=== PATIENT | female | born 1960 | race Caucasian/White ===

== ENCOUNTER 2023-12-19 09:08 | Outpatient (OUT) | payer BC, SELFPAY ==
[2023-12-19 09:50] LABS: Basophils Percent Auto 0.6 % (0.2-2.0); Eosinophils Absolute Auto 0.1 10^3/uL (0.0-0.7); Eosinophils Percent Auto 2.6 % (0.9-7.0); Hemoglobin 14.3 g/dL (12.0-16.0); Immature Granulocytes Abs Auto 0.02 10^3/uL (0.00-0.03); Immature Granulocytes Pct Auto 0.4 % (0.0-0.5); Lymphocytes Absolute Auto 1.5 10^3/uL (1.2-3.8); Lymphocytes Percent Auto 28.1 % (20.5-60.0); Mean Corpuscular HGB Conc 32.5 g/dL (29.9-35.2); Mean Corpuscular Hemoglobin 30.6 pg (26.7-34.0); Mean Corpuscular Volume 94.2 fL (81.0-99.0); Mean Platelet Volume 10.6 fL (9.5-13.5); Monocytes Absolute Auto 0.5 10^3/uL (0.3-0.8); Monocytes Percent Auto 8.3 % (1.7-12.0); Neutrophils Absolute Auto 3.3 10^3/uL (1.4-6.5); Platelet Count 172 10^3/uL (150-450); Red Blood Count 4.67 10^6/uL (4.20-5.40); Red Cell Distribution Width 13.1 % (11.0-15.0); White Blood Count 5.4 10^3/uL (4.0-11.0)
[2023-12-19 09:55] LABS: Alanine Aminotransferase 27 U/L (14-59); Albumin Globulin Ratio 1.1; Albumin Level 3.8 g/dL (3.4-5.0); Alkaline Phosphatase 77 U/L (46-116); Anion Gap 11.3; Aspartate Amino Transferase 23 U/L (15-37); BUN Creatinine Ratio 21.2; Bilirubin Total 0.7 mg/dL (0.2-1.0); Calcium 9.3 mg/dL (8.5-10.1); Carbon Dioxide 28.7 mmol/L (21.0-32.0); Chloride 105 mmol/L (98-107); Chol HDL Ratio 2.2; Cholesterol 191 mg/dL (<=200); Estimated GFR (African America >60 (>=60); Estimated GFR (Non-African Ame >60 (>=60); Globulin 3.6 g/dL; Glucose 100 mg/dL (74-106); HDL Cholesterol 88 mg/dL (40-60); Sodium 141 mmol/L (136-145); Thyroid Stimulating Hormone 0.819 uIU/mL (0.358-3.740); Total Protein 7.4 g/dL (6.4-8.2); Triglycerides 60 mg/dL (<=150)
[2023-12-19 10:13] LABS: Estimated Average Glucose 108 mg/dL; Glycohemoglobin A1C 5.4 % (4.5-6.2)
[2023-12-19 10:28] LABS: Free T4 0.98 ng/dL (0.76-1.46)
== END 2023-12-19 09:09 | disposition home or self-care (01) ==
LOC: LAB 09:13
PROVIDERS: PCP Family Medicine; Visit Provider Family Medicine
DX: Z00.00 Encounter for general adult medical examination without abnormal findings (principal)
CPT/HCPCS: 36415; 80053; 80061; 83036; 84439; 84443; 85025

== ENCOUNTER 2024-12-19 09:05 | Outpatient (OUT) | payer BC, SELFPAY ==
--- OUTSIDE RECORDS SUMMARY | 2023-12-19 04:30 | XMS_ITS ---
Author Organization The [facility] in [place] Address [address] [place] [address] Care Team Providers Care Rn Community Name Role Phone Andrey Figueroa Primary Care Provider Allergies Allergen (clinical drug ingredient) Drug/Non Drug Allergy documented on EMR Reaction Allergy Type Onset Date Status ciprofloxacin Ciprofloxacin rash Drug Allergy Active Results Component Value Reference Range Notes CBC AUTO DIFF Reviewed date:12/19/2023 03:10:26 PM Interpretation: Performing Lab: Notes/Report: [facility] , White Blood Count 5.4 4.0-11.0 10 3/uL Red Blood Count 4.67 4.20-5.40 10 6/uL Hemoglobin 14.3 12.0-16.0 g/dL Hematocrit 44.0 36.0-48.0 % Mean Corpuscular Volume 94.2 81.0-99.0 fL Mean Corpuscular Hemoglobin 30.6 26.7-34.0 pg Mean Corpuscular HGB Conc 32.5 29.9-35.2 g/dL Red Cell Distribution Width 13.1 11.0-15.0 % Platelet Count 172 150-450 10 3/uL Mean Platelet Volume 10.6 9.5-13.5 fL Neutrophils Percent Auto 60.0 43.0-75.0 % Lymphocytes Percent Auto 28.1 20.5-60.0 % Monocytes Percent Auto 8.3 1.7-12.0 % Eosinophils Percent Auto 2.6 0.9-7.0 % Basophils Percent Auto 0.6 0.2-2.0 % Immature Granulocytes Pct Auto 0.4 0.0-0.5 % Neutrophils Absolute Auto 3.3 1.4-6.5 10 3/uL Lymphocytes Absolute Auto 1.5 1.2-3.8 10 3/uL Monocytes Absolute Auto 0.5 0.3-0.8 10 3/uL Eosinophils Absolute Auto 0.1 0.0-0.7 10 3/uL Basophils Absolute Auto 0.0 0.0-0.1 10 3/uL Immature Granulocytes Abs Auto 0.02 0.00-0.03 10 3/uL Performing Lab: see note ML - [facility] GLYCOHEMOGLOBIN A1C Reviewed date:12/19/2023 03:10:26 PM Interpretation: Performing Lab: Notes/Report: [facility] , Glycohemoglobin A1C 5.4 4.5-6.2 % ADA RECOMMENDED LIMIT 4.0 - 6.0 ADA THERAPEUTIC TARGET < 7.0 ACTION SUGGESTED > 7.0 Estimated Average Glucose 108 Performing Lab: see note ML - [facility] LIPID PROFILE Reviewed date:12/19/2023 03:10:26 PM Interpretation: Performing Lab: Notes/Report: [facility] , Triglycerides 60 <=150 mg/dL Cholesterol 191 <=200 mg/dL HDL Cholesterol 88 40-60 mg/dL > or =60 mg/dl - LOW CARDIOVASCULAR RISK <40 mg/dl - HIGH CARDIOVASCULAR RISK LDL Cholesterol Calculated 91.0 <100 mg/dl OPTIMAL 100-129 mg/dl NEAR OR ABOVE OPTIMAL 130-159 mg/dl BORDERLINE HIGH 160-189 mg/dl HIGH >190 mg/dl VERY HIGH VLDL CHOLESTEROL 12.0 Chol HDL Ratio 2.2 3.3 - 4.4 LOW RISK 4.4 - 7.1 AVERAGE RISK 7.1 - 11.0 MODERATE RISK >11.0 HIGH RISK Performing Lab: see note - [facility] LB PROF 14(COMP METB) Reviewed date:12/19/2023 03:10:26 PM Interpretation: Performing Lab: Notes/Report: [facility] , Sodium 141 136-145 mmol/L Potassium 4.0 3.5-5.1 mmol/L Chloride 105 98-107 mmol/L Carbon Dioxide 28.7 21.0-32.0 mmol/L Anion Gap 11.3 Glucose 100 74-106 mg/dL Blood Urea Nitrogen 17.0 7.0-18.0 mg/dL Creatinine 0.80 0.55-1.02 mg/dL Estimated GFR ( Amalia >60 >=60 Estimated GFR (Non- Afshan >60 >=60 BUN Creatinine Ratio 21.2 Calcium 9.3 8.5-10.1 mg/dL Bilirubin Total 0.7 0.2-1.0 mg/dL Aspartate Amino Transferase 23 15-37 U/L Alanine Aminotransferase 27 14-59 U/L Alkaline Phosphatase 77 46-116 U/L Total Protein 7.4 6.4-8.2 g/dL Albumin Level 3.8 3.4-5.0 g/dL Globulin 3.6 Albumin Globulin Ratio 1.1 Performing Lab: see note ML - [facility] REASON FOR VISIT Annual Wellness- right eye redness since , capps a lot, HR when sleeps 42-45 Medications Medication SIG (Take, Route, Fr equency, Duration) Notes Start Date End Date Status Multi Vitamin - 1 tablet Orally Once a day 024 Active Social History Tobacco Use: Social History Observation Description Date Details (start date - stop date) Never Smoker NA - NA Tobacco Control (Standard) Question Answer Notes Tobacco use: Nonsmoker AUDIT-C (Standard) Question Answer Notes Did you have a drink contain ing alcohol in the past year? Yes How often did you have six o r more drinks on one occasion in the past year? Never (0 point) How many drinks did you have on a typical day when you were drinking in the past year? 1 or 2 drinks (0 point) How often did you have a dri nk containing alcohol in the past year? 2 to 4 times a month (2 points) Points 2 Interpretation Negative Problems Problem Type SNOMED Code ICD Code Onset Dates Problem Status W/U Status Risk Notes Problem Carpal tunnel syndrome (00868314) Carpal tunnel syndrome (G56.00) Active confirmed Problem Irregular intermenstrual bleeding (82620228) Irregular intermenstrual bleeding (N92.1) Active confirmed Problem Factor V Leiden mutation (168710246) Factor V Leiden mutation (D68.51) Active confirmed Problem Sleep apnea (G47.30) Active confirmed Vital Signs Blood pressure systolic 122 mm Hg 12/19/19 24 Blood pressure diastolic 84 mm Hg 024 Height 61 in 12/19/2023 Weight 202.4 lbs 12/19/2023 BMI 38.24 kg/m2 12/19/2023 Encounters Encounter Location Date Provider Diagnosis [facility] [address] [place] [address] 12/19/2023 Andrey Figueroa Well adult Z00.0 0 Assessments Encounter Date Diagnosis (ICD Code) Assessment Notes Treatment Notes Treatment Clinical Notes Section Notes 12/19/2023 Well adult (ICD-10 - Z00.00) check ing labs colonoscopy next year Plan Of Treatment Treatment Notes Assessment Notes Well adult check ing labs colonoscopy next year Pending Test Test Name Order Date THYROID PROFILE WITH TSH 12/19/2023 Progress Notes * Karen WHITFIELDDOB:1960 (63 yo F)Acc No.[id number]:12/19/2023 Progress Note Patient: Karen FINLEY Provider: Janet Figueroa ([facility])MD :1960 A ge:63 Y S ex:Female Date:12/19/2023 Address:[address] [place] [address], [place], [id number] Check In:08:24 AM ESTCheck O ut:09:00 AM EST Subjective: * Chief Complaints: * 1 . Annual Wellness- right eye redness since , capps a lot. 2. HR when sleeps 42-45. * HPI: D epression Screening: PHQ-2 (2015 Edition) L ittle interest or pleasure in doing things??Not at all F eeling down, depressed, or hopeless? N ot at all T otal Score 0 G eneral: Some bradycardia - no symotsm -. * ROS: E ENT: hearing changes d enies. v isual changes d enies.?non-healing mouth sores d enies. s wollen glands or neck lumps d enies. h oarseness d enies. s ore throat d enies. d ifficulty swallowing d enies. n ose bleeds d enies. n channing congestion d enies. e ar ache d enies. e ar discharge?denies. r inging in ears d enies. l ight sensitivity d enies. e ye pain d enies. b lurring d enies. e ye irritation d enies. d ouble vision d enies.?vision loss d enies. G eneral/Constitutional: Sweats: D enies. F atigue d enies. S leep problems d enies. A norexia d enies. M alaise d enies. W eight loss d enies.?Fatigue or Weakness d enies. F ever or Chills d enies. C ardiovascular: Shortness of Breath w/lying flat d enies. L ightheadedness/dizziness d enies. C hest tightness/ heavy pressure d enies. S welling of legs, ankles, or feet d enies. W aking up with shortness of breath d enies. C hest pain denies. P alpitations d enies. W eight gain d enies. R espiratory: Chronic or frequent cough d enies. C oughing up blood?denies. D ifficulty breathing d enies. P roductive cough d enies. S noring?denies. S hortness of breath that awakens from sleep (PND) d enies. C hest pain d enies. S putum production d enies. W heezing d enies. M usculoskeletal: Joint pain d enies. J oint Fluid d enies. B ack pain d enies. K nee pain d enies. N leandro pain d enies. J oint Stiffness d enies. M uscle cramps d enies. W eakness of muscles d enies. A rthritis d enies. M uscle aches d enies. P ain in shoulder(s) d enies. S wollen joints d enies. * Active Problem List G56.00 Carpal tunnel syndro me Modified On:12/19/2023 Status:confirmed G47.30 Sleep apnea Modified On:12/19/2023 Status:confirmed D68.51 Factor V Leiden muta tion Modified On:12/19/2023 Status:confirmed N92.1 Irregular intermenst rual bleeding Modified On:08/06/2024W/U Status:confirmed * Medical History: C arpal tunnel syndrome, Deep vein thrombophlebitis of lower leg, unspecified laterality, Irregular intermenstrual bleeding, Factor V Leiden mutation, Phlebitis of upper extremity, Sleep apnea, Tubular adenoma of colon. * Surgical History: G allbladder , Hysterectomy , Gastric Sleeve . * Hospitalization/Major Diagno stic Procedure: D enies Past Hospitalization. * Family History: F ather: , diagnosed with Unspecified heart disease. M other: , pulmonary disease. * Social History: T obacco Use: T obacco Control (Standard) T obacco use: N onsmoker D rug/Alcohol: A ENRIQUE-C (Standard) D id you have a drink containing alcohol in the past year? Y es H ow often did you have six or more drinks on one occasion in the past year? N ever (0 point) H ow many drinks did you have on a typical day when you were drinking in the past year? 1 or 2 drinks (0 point) H ow often did you have a drink containing alcohol in the past year? 2 to 4 times a month (2 points) P oints 2 I nterpretation N egative * Medications: T aking Multi Vitamin - Tablet 1 tablet Orally Once a day , Medication List reviewed and reconciled with the patient * Allergies: C iprofloxacin: rash. Objective: * Vitals: W t:202.4lbs, Ht: 61 in, BP:122/84mm Hg, BMI:38.24Index, Ht-cm: 154.94 cm, Wt-k.81 kg. * Examination: P hysical Exam: GENERAL: w ell developed, well nourished, in no acute distress. HEAD: n ormocephalic/atraumatic. EYES: p upils equal, round and reactive to light, conjunctivae and sclerae normal. EARS: n o deformity or lesion of external ear, canals and TM appear normal bilaterally, TM's intact, not inflamed with normal light reflex, hearing grossly normal to conversational speech. NOSE: n o deformity, discharge, inflammation, or lesions.? MOUTH: m ucous membranes moist, normal oropharynx and posterior pharynx without lesions or exudates, tongue normal, dentition normal. NECK: n leandro supple, no masses or palpable cervical nodes, trachea midline, thyroid without nodules, masses, tenderness, or enlargement. CHEST: n o chest wall deformity, no chest wall tenderness.? LUNGS: n ormal respiratory effort and clear to auscultation, no wheezes, rales, or rhonchi, good air exchange. CARDIO: r egular rate and rhythm, normal S1 and S2, nor murmur, rub, or gallop. PULSES: n ormal capillary refill. ABDOMEN: s oft, non-distended, non-tender, no masses. MUSCULOSKELETAL: n o deformity or scoliosis noted, normal range of motion, joints normal, no erythema, edema, effusion, or ecchymosis. EXTREMITY: n o clubbing, cyanosis, edema, or deformity with normal ROM in both upper and lower bilateral extremities. NEUROLOGIC: g rossly normal. SKIN: n o rashes, ulcerations, or suspicious lesions. LYMPH NODES: n o cervical adenopathy, nodes normal. MENTAL STATUS: a lert and oriented x3, normal mood and affect. Assessment: * Assessment: 1. [facility] - Z00.00 (Primary) Plan: * Treatment: * Labs: * L ab: PROF 14(COMP METB) (Collection Date & Time - 12/19/2023 09:23 AM) L ab: LIPID PROFILE (Collection Date & Time - 12/19/2023 09:23 AM) L ab: GLYCOHEMOGLOBIN A1C (Collection Date & Time - 12/19/2023 09:23 AM) L ab: CBC AUTO DIFF (Collection Date & Time - 12/19/2023 09:23 AM) * Preventive Medicine: Screenings/Counseling: B AK ACTION PLAN Above Normal BMI Follow-up D ietary management education, guidance, and counseling * * Sign off status: Completed Visit Status: C HK (Check Out) true * Provider: Janet Figueroa (JEANNINE)MD Date: 0 12/19/2023 Generated for Sathya yoder/Mac/eTransmitting on: 0 12/19/2024 09:08 AM EDT History and Physical Notes * HPI (History of Present Illness) Category Sub-Category Detail Notes Category Not es General Some bradycardi a - no symotsm - Depression Screening PHQ-2 (2015 Edition) Little interest or pleasure in doing things?: Not at all Feeling down, depressed, or hopeless?: N ot at all Total Score: 0 Examination Category Sub-Category Detail Notes Category Not es Physical Exam GENERAL: well developed, well nourished, in no acute distress HEAD: normocephalic/atraum atic EYES: pupils equal, round and reactive to light, conjunctivae and sclerae normal EARS: no deformity or lesi on of external ear, canals and TM appear normal bilaterally, TM's intact, not inflamed with normal light reflex, hearing grossly normal to conversational speech NOSE: no deformity, discha rge, inflammation, or lesions MOUTH: mucous membranes krupa st, normal oropharynx and posterior pharynx without lesions or exudates, tongue normal, dentition normal NECK: neck supple, no mass es or palpable cervical nodes, trachea midline, thyroid without nodules, masses, tenderness, or enlargement CHEST: no chest wall deform ity, no chest wall tenderness LUNGS: normal respiratory e ffort and clear to auscultation, no wheezes, rales, or rhonchi, good air exchange CARDIO: regular rate and rhy thm, normal S1 and S2, nor murmur, rub, or gallop PULSES: normal capillary ref ill ABDOMEN: soft, non-distended, non-tender, no masses RECTAL: MUSCULOSKELETAL: no deformity or scol iosis noted, normal range of motion, joints normal, no erythema, edema, effusion, or ecchymosis EXTREMITY: no clubbing, cyanosi s, edema, or deformity with normal ROM in both upper and lower bilateral extremities NEUROLOGIC: grossly normal SKIN: no rashes, ulceratio ns, or suspicious lesions LYMPH NODES: no cervical adenopat hy, nodes normal MENTAL STATUS: alert and oriented x 3, normal mood and affect
--- OUTSIDE RECORDS SUMMARY | 2023-12-19 11:10 | XMS_ITS ---
Author Organization The [facility] in [place] Address [address] [place] [address] Care Team Providers Care Tour Sales Representative Name Role Phone Andrey Figueroa Primary Care Provider [phone] REASON FOR VISIT Lab results Encounters Encounter Location Date Provider Diagnosis [facility] [address] [place] [address] 12/19/2023 Andrey Figueroa Plan Of Treatment No Information Progress Notes * Karen WHITFIELDDOB:1960 (63 yo F)Acc No.[id number]:12/19/2023 Patient: Tara NICK Karen :1960 A ge:63 Y S ex:Female Address:[address], [place] [address] * true * Date: Generated for Printi ng/Faxenag/eTransmitting on: 0 12/19/2024 09:07 AM EDT
--- OUTSIDE RECORDS SUMMARY | 2024-12-19 04:30 | XMS_ITS ---
Author Organization [facility] in [place] Address [address] [place] [address] Care Team Providers Care Embossing Clerk Name Role Phone Andrey Figueroa Primary Care Provider Allergies Allergen (clinical drug ingredient) Drug/Non Drug Allergy documented on EMR Reaction Allergy Type Onset Date Status ciprofloxacin Ciprofloxacin rash Drug Allergy Active REASON FOR VISIT annual- wellness, right hip and back pain- been on going over 1 year- takes Motrin as needed- worsewhen wakes up Medications Medication SIG (Take, Route, Fr equency, Duration) Notes Start Date End Date Status Multi Vitamin - 1 tablet Orally Once a day 024 Active Magnesium Active tiZANidine HCl 4 MG 2 tabs Orally qhs for 30 days 12/19/2024 Active Social History Tobacco Use: Social History Observation Description Date Details (start date - stop date) Never Smoker NA - NA Tobacco Control (Standard) Question Answer Notes Tobacco use: Nonsmoker AUDIT-C (Standard) Question Answer Notes Did you have a drink contain ing alcohol in the past year? Yes How often did you have a dri nk containing alcohol in the past year? 2 to 4 times a month (2 points) How many drinks did you have on a typical day when you were drinking in the past year? 1 or 2 drinks (0 point) How often did you have six o r more drinks on one occasion in the past year? Never (0 point) Points 2 Interpretation Negative Problems Problem Type SNOMED Code ICD Code Onset Dates Problem Status W/U Status Risk Notes Problem Well adult (637155484) Well adult (Z00.00) Active confirmed Problem Flank pain (398481689) Flank pain (R10.9) Active confirmed Problem Hip pain (45829304) Hip pain (M25.559) Active confirmed Vital Signs Blood pressure systolic 138 mm Hg 12/20/19 25 Blood pressure diastolic 84 mm Hg 025 Height 61 in 12/19/2024 Weight 221.4 lbs 12/19/2024 BMI 41.83 kg/m2 12/19/2024 Encounters Encounter Location Date Provider Diagnosis [facility] ([place], [place]) [address] [place] [address] 12/19/2024 Andrey Figueroa Well adult Z00.00 ; Flank pain R10.9 and Hip pain M25.559 Assessments Encounter Date Diagnosis (ICD Code) Assessment Notes Treatment Notes Treatment Clinical Notes Section Notes 12/19/2024 Well adult (ICD-10 - Z00.00) 12/19/2024 Flank pain (ICD-10 - R10.9) 12/19/2024 Hip pain (ICD-10 - M25.559) Plan Of Treatment Medication Medication Name Sig Start Date Stop Date Notes tiZANidine HCl 4 MG 2 tabs Orally qhs for 30 days 12/20/19 25 Pending Test Test Name Order Date HEMOGLOBIN A1C (GLYCO) 12/19/2024 IRON, TOTAL 12/19/2024 LIPID PANEL (CHOL/TRIG/HDL/LDL) 12/20/19 25 VITAMIN D, 25 LEVEL (TOTAL) 12/19/2024 Urinalysis Microscopic 12/19/2024 Insulin Level 12/19/2024 CULTURE URINE 12/19/2024 MAGNESIUM 12/19/2024 XR KUB 1 VIEW 12/19/2024 XR LSPINE MIN 4 VIEWS 12/19/2024 THYROID PANEL (T4/TSH/FREE T3) XR HIP RT 2 3V W PELVIS 12/19/2024 CMP (COMP MET ARNOLD) w/eGFR CKD-EPI 2024 CBC WITH DIFF 12/19/2024 Progress Notes * Karen WHITFIELDDOB:1960 (64 yo F)Acc No.[id number]:12/19/2024 UNLOCKED PROGRESS NOTE Progress Note Patient: C ORBETT, Karen Provider: Janet Figueroa ([facility])MD :1960 A ge:64 Y S ex:Female Date:12/19/2024 Address:[place], [id number] Check In:08:20 AM ESTCheck O ut:08:51 AM EST Subjective: * Chief Complaints: * 1 . Annual- wellness. 2. right hip and back pain- been on going over 1 year- takes Motrin as needed- worse when wakes up. * HPI: G eneral: R sided back pain and R hip pain stays in back - no radiation into legs worse at hs. D epression Screening: PHQ-2 (2015 Edition) L ittle interest or pleasure in doing things??Not at all F eeling down, depressed, or hopeless? N ot at all T otal Score 0 * ROS: E ENT: hearing changes d [...] enies. S wollen joints d enies. * Medical History: C arpal tunnel syndrome, [...] es H ow often did you have a drink containing alcohol in the past year? 2 to 4 times a month (2 points) H ow many drinks did you have on a typical day when you were drinking in the past year? 1 or 2 drinks (0 point) H ow often did you have six or more drinks on one occasion in the past year? N ever (0 point) P oints 2 I nterpretation N egative * Medications: T aking Magnesium , Taking Multi Vitamin - Tablet 1 tablet Orally Once a day , Medication List reviewed and reconciled with the patient * Allergies: C iprofloxacin: rash. Objective: * Vitals: W t:221.4lbs, Ht: 61 in, BP:138/84mm Hg, BMI:41.83Index, Ht-cm: 154.94 cm, Wt-k.43 kg. * Examination: P hysical Exam: GENERAL: [...] no erythema, edema, effusion, or ecchymosis. EXTREMITY: p oor rom in back due pain. NEUROLOGIC: g rossly normal. SKIN: n o rashes, ulcerations, or suspicious lesions. LYMPH NODES: n o cervical adenopathy, nodes normal. MENTAL STATUS: a lert and oriented x3, normal mood and affect. Assessment: * Assessment: 1. W ell adult - Z00.00 (Primary) 2 . F lank pain - R10.9 3 . H ip pain - M25.559 Plan: * Treatment: 2. F lank pain I maging: XR KUB 1 VIEW I maging: XR LSPINE MIN 4 VIEWS I maging: XR HIP RT 2 3V W PELVIS 3. H ip pain I maging: XR KUB 1 VIEW I maging: XR LSPINE MIN 4 VIEWS I maging: XR HIP RT 2 3V W PELVIS * Preventive Medicine: Screenings/Counseling: B CT ACTION PLAN Above Normal BMI Follow-up D ietary management education, guidance, and counseling * * Electronic signature of Andrey Figueroa MD, [id number] on 12/19/2024 at 09:07 AM EDT Sign off status: Pending Visit Status: C HK (Check Out) * Provider: Janet Figueroa ([facility])MD Date: 0 12/19/2024 Generated for Printi ng/Faxing/eTransmitting on: 0 12/19/2024 09:07 AM EDT History and Physical Notes * HPI (History of Present Illness) Category Sub-Category Detail Notes Category Not es General R sided back pain and R hip pain stays in back - no radiation into legs worse at hs Depression Screening PHQ-2 (2015 Edition) Little interest [...] no erythema, edema, effusion, or ecchymosis EXTREMITY: poor rom in back due pain NEUROLOGIC: grossly normal SKIN: no rashes, ulceratio ns, or suspicious lesions LYMPH NODES: no cervical adenopat hy, nodes normal MENTAL STATUS: alert and oriented x 3, normal mood and affect
--- OUTSIDE RECORDS SUMMARY | 2024-12-19 09:07 | XMS_ITS | Encounter Summary ---
Author Organization [facility] Address [address] [place] [address] Care Team Providers Care Deburring Machine Operator Name Role Phone Jhonatan Figueroa MD Primary Care Provider [phone] Natty Reyes RN Unavailable Unavailable Yo Andres MD Unavailable Yo Andres MD Unavailable Source Comments In the event this information is protected by the Federal Confidentiality of Alcohol and Drug AbusePatient Records regulations: The Federal rules restrict any use of the information to criminally investigate or prosecute any alcohol or drug abuse patient.[facility] Encounter Details Date Type Department Care Team (Late st Contact Info) Description 10/06/2017 Patient Msg General Surgery [address] [place] [address] Gavi Gresham, D[place] [address] [place] [address] Appointment Cancellation Request Social History Tobacco Use Types Packs/Day Years Used Date Smoking Tobacco: Never Smokeless Tobacco: Never Alcohol Use Standard Drinks/Week Comments Yes 1 (1 standard drink = 0.6 oz pur e alcohol) twice a month Comments No Sex and Gender Information Value Date Recorded Sex Assigned at Not on file Legal Sex Female 3:40 PM EST Gender Identity Not on file Sexual Orientation Not on file 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 file Not on file Not on file documented as of this encounter Plan of Treatment Not on file documented as of this encounter Visit Diagnoses Not on filedocumented in this encounter Care Teams Deburring Machine Operator Relationship Specialty Start Date End Date Jhonatan Figueroa MD PCP - General Family Medicine 10/02/17 Natty Reyes, DADA Specialty Shop Superintendent General Surgery 01/12/18 Yo Andres MD [address] [place] [address] Primary Staff Physician Cardiology 07/31/1807/31 Yo Andres MD [address] [place] [address] Primary Staff Physician Cardiology 07/31/18 documented as of this encounter
--- OUTSIDE RECORDS SUMMARY | 2024-12-19 09:07 | XMS_ITS | Clinical Summary ---
Author Organization [facility] Address [address] [place] [address] Care Team Providers Care Hearing Aid Fitter Name Role Phone Jhonatan Figueroa MD Primary Care Provider [phone] Allergies Active Allergy Reactions Criticality Noted Date Comments Molds & Smuts Itching High 12/18/2018 Medications Multiple Vitamin (Multivitamin Adult) tablet as directed Orally Active Cholecalciferol (VITAMIN D-3 PO) 1 (one) time each day at the same time. Active Calcium Carbonate (CALCIUM 500 PO) 1 (one) time each day at the same time. Active estradiol (Estrace) 0.1 MG/GM vaginal creamIndications :Postmenopausal HRT (hormone replacement therapy) Apply twice weekly. 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 Immunizations Immunization Administration Dates Next Due Influenza, Unspecified 03/16/2021 Influenza, injectable, quadr ivalent, preservative free 03/01/2022,03/11/2021,03/14/2017,2014 Influenza, seasonal, injectable 02/27/2013 Family History Medical History Relation Name Comments Hypertension Brother 1 Jose Enrique Saywer Hypertension Brother 2 Navin Sawyer Heart disease Father PJSpeyer Heart failure Father PJSpeyer Hypertension Father PJSpeyer Stroke Mother's Sister Tyrell Campos Cancer Neg Hx Relation Name Status Comments Brother 1 Jose Enrique Sawyer Brother 2 Navin Sawyer Father PJSpeyer Mother Mother's Sister Tyrell Campos Social History Tobacco Use Types Packs/Day Years Used Date Smoking Tobacco: Never Smokeless Tobacco: Never Tobacco Cessation:Counseling Given: Not Answered Alcohol Use Standard Drinks/Week Comments Yes 1 (1 standard drink = 0.6 oz pure alcohol) Caffeine intake: 1-2 cups per day coffee AUDIT-C Answer Date Recorded Q1: How often do you have a drink containing alc ohol? Monthly or less 03/25/2024 Q2: How many drinks containi ng alcohol do you have on a typical day when you are drinking? 1 or 2 03/25/2024 Q3: How often do you have si x or more drinks on one occasion? Never 03/25/2024 PHQ-2 Answer Date Recorded Patient Health Questionnaire-2 Score 0 03/25/2024 Comments No Sex and Gender Information Value Date Recorded Sex Assigned at Female 03/13/2023 11:52 AM EDT Legal Sex Female 7:33 PM EDT Gender Identity Female 03/13/2023 11:52 AM EDT Sexual Orientation Straight 03/13/2023 11 :52 AM EDT Last Filed Vital Signs Vital Sign Reading Time Taken Comments Blood Pressure 118/80 03/25/2024 3:59 PM EST Pulse - - Temperature - - Respiratory Rate - - Oxygen Saturation - - Inhaled Oxygen Concentration - - Weight 95.3 kg (210 lb) 03/25/2024 3:59 PM EST Height 154.9 cm (5' 1 ) 03/25/2024 3:59 PM EST Body Mass Index 39.68 03/25/2024 3:59 PM EST Plan of Treatment Upcoming Encounters Date Type Department Care Team (Late st Contact Info) Description 03/31/2025 4:00 PM EST Office Visit [facility] [address] [place] [address] Colton Mckeon DO [address] [place] [address] Health Maintenance Due Date Last Done Comments CT Colonography 1960 Colonoscopy 1960 Colorectal Cancer Screening 1960 FIT-DNA 1962 FIT 1962 FOBT 1960 Sigmoidoscopy 1960 Influenza Vaccine (#1) 2025 , 03/01/2022, 03/16/2021, Additional history exists Mammogram 06/20/2025 06/20/2024, 05/16, 05/30/2022, Additional history exists Pap Smear 03/20/2026 03/20/2023 Cervical Cancer Screening 03/25/2029 HPV/Cotest 03/25/2029 03/25/2024, 1110/2022, 03/04/2021, Additional history exists Procedures Procedure Name Priority Date/Time Associated Diagnosis Comments BI MAMMOGRAM SCREENING TOMOSYNTHESIS BILATERAL 06/20/2024 3:33 PM EST IGP,RFXAPTIMA HPV ALL,16/18,45 Routine 03/25/2024 12:00 AM EST Encounter for Papanicolaou smear of vagina THINPREP TIS PAP RFX HPV Routine 03/20/2023 12:00 AM EST Encounter for gynecological examination without abnormal finding Encounter for Papanicolaou smear of vagina from Last 3 Months or Most Recently Relevant to Health Maintenance Results * Bilateral screening mammogram with tomosynthesis (06/20/2024 3:33 PM EST) Anatomical Region Laterality Modality Breast Bilateral Mammography 06/20/2024 3:33 PM EST Impressions 06/20/2024 3:36 PM EST NO MAMMOGRAPHIC EVIDENCE OF MALIGNANCY. ROUTINE FOLLOW-UP IS RECOMMENDED IN ONE YEAR. RESULT CODE: 1 Negative DENSITY CODE: 2 (approximately 25-50% glandular) FOLLOW UP: 1YR The false-negative rate of mammography is approximately 10-percent. Management of a palpable abnormality must be based on clinical grounds. Patient was entered into a reminder system with a target due date for the next mammogram. Impression dictated by: Jj Cottrell Jr. D.OJuan06/20/2024 3:34 PM Dictation Location: [facility] Transcribed By: PWS 06/20/24 153 Dictated By: Jj Cottrell Jr, DO 06/20/24 153 Signed By: <Electronically signed by Jj Cottrell Jr, DO in OV> 06/20/24 1534 Narrative 06/20/2024 3:36 PM EST [place] [id number] Mammography Report Signed Patient: Karen Whitfield MR#: [id number] 639 : 1960 Acct:[id number] Age/Sex: 63 / F ADM Date: 06/20/24 Loc: [place] Room: Type: REG CLI Attending Dr: Colton Mckeon DO Copies to: MD Colton Avila DO Ordering Provider: Colton Mckeon DO Date of Service: 06/20/24 MM/MM screening mammo BI w/CAD: SCREENING CLINICAL DATA: Screening for malignancy. SCREENING MAMMOGRAM - FULL FIELD DIGITAL WITH TOMOSYNTHESIS AND CAD COMPARISON:Mammograms dating back to 2019 Tomosynthesis craniocaudal and mediolateral oblique views of both breasts were obtained using low- dose digital technique. This examination was reviewed with the aid of CAD. FINDINGS: The breast tissue is composed of scattered fibroglandular densities. There are no dominant masses, typically malignant calcifications or architectural distortion. There has been no significant interval change. MM/MM screening mammo BI w/CAD Procedure Note Radiology, Radiologist, MD - 06/20/2024 [place] [id number] Mammography Report Signed Patient: Karen Whitfield AMR#: [id number] 639 : 1960Acct:[id number] Age/Sex: 63 / FADM Date: 06/20/24 Loc: [place] Room:Type: REG CLI Attending Dr: Colton Mckeon DO Copies to: MD Colton Avila DO Ordering Provider: Colton Mckeon DO Date of Service: 06/20/24 MM/MM screening mammo BI w/CAD: SCREENING CLINICAL DATA: Screening for malignancy. SCREENING MAMMOGRAM - FULL FIELD DIGITAL WITH TOMOSYNTHESIS AND CAD COMPARISON:Mammograms dating back to 2019 Tomosynthesis craniocaudal and mediolateral oblique views of both breastswere obtained using low- dose digital technique. This examination was reviewed with the aid ofCAD. FINDINGS: The breast tissue is composed of scattered fibroglandular densities.There are no dominant masses, typically malignant calcifications or architectural distortion. There hasbeen no significant interval change. MM/MM screening mammo BI w/CAD IMPRESSION: NO MAMMOGRAPHIC EVIDENCE OF MALIGNANCY. ROUTINE FOLLOW-UP IS RECOMMENDED IN ONE YEAR. RESULT CODE: 1 Negative DENSITY CODE: 2 (approximately 25-50% glandular) FOLLOW UP: 1YR The false-negative rate of mammography is approximately 10-percent. Management of a palpable abnormality must be based on clinical grounds. Patient was entered into a reminder system with a target due date for thenext mammogram. Impression dictated by: Jj Cottrell Jr., D.O.06/20/2024 3:34 PM Dictation Location: [facility] Transcribed By: [facility] 06/20/24 1534 Dictated By: Jj Cottrell Jr, DO 06/20/24 1533 Signed By: <Electronically signed by Jj Cottrell Jr, DO inOV> 06/20/24 1534 us Colton Mckeon DO IMG BI PROCEDURES Final Resu lt * IGP,rfxAptima HPV all,16/18,45 (03/25/2024 12:00 AM EST) Diagnosis: Comment [facility] Comment: NEGATIVE FOR INTRAEPITHELIAL LESION OR MALIGNANCY. CELLULAR CHANGES ASSOCIATED WITH INFLAMMATION ARE PRESENT. Specimen Adequacy: Comment [facility] Comment: Satisfactory for evaluation. No endocervical cells are present. This is consistent with a history of hysterectomy. Areas of partially obscuring inflammatory exudate are present. Clinician Provided ICD10: Comment [facility] Comment:Z12.72 Performed By: Comment [facility] Comment:Fransisco Barriga totechnologist (ASCP) Cyto Comments . [facility] Note: Comment [facility] Comment: The Pap smear is a screening test designed to aid in the detection of premalignant and malignant conditions of the uterine cervix. It is not a diagnostic procedure and should not be used as the sole means of detecting cervical cancer. Both false-positive and false-negative reports do occur. Test Methodology: CANCELED [facility] Comment: The Thin Prep(R) Astrophysics Teacher was unable to read this specimen. Therefore a manual review was performed. Result canceled by the ancillary. . Comment [facility] Comment: The HPV DNA reflex criteria were not met with this specimen result therefore, no HPV testing was performed. Swab Vaginal structure / Unknown 03/25/2024 03/26/2024 Comment:Vagina LMP: [facility] LSO 20 Narrative [facility] - 04/01/2024 11:07 AM EST Performed at: [address] [id number] Airveyor Operator: Yina Goode MD, Phone: [phone] Specimen Comment: [id number] Specimen Comment: No. of containers..01 ThinPrep Vial Colton Mckeon DO LAB CYTOLOGY ORDERABLES Edit ed Result - Final [facility] * THINPREP TIS PAP RFX HPV (03/20/2023 12:00 AM EST) CLINICAL INFORMATION [facility] Comment:None given LMP [facility] Comment:[facility] LSO 2006 PREV. PAP [facility] Comment:NEG PREV. BX [facility] Comment:None given SOURCE [facility] Comment:None given STATEMENT OF ADEQUACY [facility] Comment:SATISFACTORY FOR VIOLET LUATION INTERPRETATION/RESUL T [facility] Comment: Cytology Results: Negative for intraepithelial lesion or malignancy. Atrophic pattern; predominantly parabasal cells COMMENT [facility] Comment: This Pap test has been evaluated with computer assisted technology. Parabasal cells in smears that lack maturation due to atrophy or other hormonal reasons cannot be differentiated from transformation zone cells. Accordingly, presence or absence of endocervical or transformation zone components cannot be reported in this patient. CONCRETE FORM SETTER [facility] Comment: LXT, CT(ASCP) CT screening location: [facility] [place], [address] [place] [phone]. (ALWAYS MESSAGE) TV Volume Wizard App Comment: EXPLANATORY NOTE: The Pap is a screening test for cervical cancer. It is not a diagnostic test and is subject to false negative and false positive results. It is most reliable when a satisfactory sample, regularly obtained, is submitted with relevant clinical findings and history, and when the Pap result is evaluated along with historic and current clinical information. Swab 03/20/2023 03/21/2023 4:1 4 AM EST Narrative Resulting Agency Comment Performing Organization Information Site ID: [id number] Name: [facility] Address: [address] [place] [id number] Director: Yoel Mendoza MD us Colton Mckeon DO LAB CYTOLOGY ORDERABLES Ne caraballo Result [facility] from Last 3 Months or Most Recently Relevant to Health Maintenance Insurance [facility] Care Teams Hearing Aid Fitter Relationship Specialty Start Date End Date Jhonatan Figueroa MD PCP - General Family Medicine 03/20/23
--- OUTSIDE RECORDS SUMMARY | 2024-12-19 09:07 | XMS_ITS | Encounter Summary ---
Author Organization [facility] Address [address] [place] [address] Care Team Providers Care E Learning Developer Name Role Phone Jhonatan Figueroa MD Primary Care Provider [phone] Encounter Details Date Type Department Care Team (Late st Contact Info) Description 06/20/2024 External Result Encounter [facility] External Department Unsolicited Colton Mckeon, DO [address] [place] [address] Social History Tobacco Use Types Packs/Day Years [...] Orientation Straight 03/13/2023 11 :52 AM EDT documented as of this encounter Plan of Treatment Upcoming Encounters Date Type Department Care Team (Late st Contact Info) Description 03/31/2025 4:00 PM EST Office Visit [facility] [address] [place] [address] Colton Mckeon DO [address] [place] [address] documented as of this encounter Procedures Procedure Name Priority Date/Time Associated Diagnosis Comments BI MAMMOGRAM SCREENING TOMOSYNTHESIS BILATERAL 06/20/2024 3:33 PM EST documented in this encounter Results * Bilateral screening mammogram with tomosynthesis [...] next mammogram. Impression dictated by: Jj Cottrell Jr., D.O.06/20/2024 3:34 PM Dictation Location: [facility] Transcribed By: [facility] 06/20/24 1534 Dictated By: Jj Cottrell Jr, DO 06/20/24 1533 Signed By: <Electronically signed by Jj Cottrell Jr, DO in OV> 06/20/24 1534 Narrative 06/20/2024 3:36 PM EST [facility] [address] [address] Mammography Report Signed Patient: Karen Whitfield MR#: [id number] 639 : 1960 Acct:[id number] Age/Sex: 63 / F ADM Date: 06/20/24 Loc: [place] Room: Type: [facility] CLI Attending Dr: Colton Mckeon DO Copies [...] mammo BI w/CAD Procedure Note Radiology, Radiologist, - 06/20/2024 [facility] [place] [address] [place] [address] Mammography Report Signed Patient: Karen Whitfield AMR#: [id number] 639 : 1960Acct:[id number] Age/Sex: 63 / FADM Date: 06/20/24 Loc: [place] Room:Type: [facility] Attending Dr: Colton Mckeon DO Copies to: [...] mammogram. Impression dictated by: Jj Cottrell Jr., D.OJuan06/20/2024 3:34 PM Dictation Location: [facility] Transcribed By: [facility] 06/20/24 1534 Dictated By: Jj Cottrell Jr, DO 06/20/24 1533 Signed By: <Electronically signed by Jj Cottrell Jr, DO inOV> 06/20/24 1534 Colton Mckeon DO IMG BI PROCEDURES Final Resu lt documented in this encounter Visit Diagnoses Not on filedocumented in this encounter Care Teams E Learning Developer Relationship Specialty Start Date End Date Jhonatan Figueroa MD PCP - General Family Medicine 03/20/23 documented as of this encounter
--- OUTSIDE RECORDS SUMMARY | 2024-12-19 09:07 | XMS_ITS | Patient Health Record ---
Author Organization [facility] Address [address] [place] [address] Care Team Providers Care Automobile Washer Steam Name Role Phone Andrey Figueroa Primary Care Provider Allergies Allergen (clinical drug ingredient) Drug/Non Drug Allergy documented on EMR Reaction Allergy Type Onset Date Status ciprofloxacin Ciprofloxacin rash Drug Allergy Active Reason For Referral No Information Medications Medication SIG (Take, Route, Fr equency, [...] Status Risk Notes Problem Carpal tunnel syndrome (12329697) Carpal tunnel syndrome (G56.00) Active confirmed Problem Sleep apnea (35213672) Sleep apnea (G47.30) Active confirmed Problem Hip pain (57306555) Hip pain (M25.559) Active confirmed Problem Factor V Leiden mutation (856745983) Factor V Leiden mutation (D68.51) Active confirmed Problem Well adult (683605673) Well adult (Z00.00) Active confirmed Problem Flank pain (404266445) Flank pain (R10.9) Active confirmed Problem Irregular intermenstrual bleeding (98942919) Irregular intermenstrual bleeding (N92.1) Active confirmed Vital Signs Blood pressure diastolic 84 mm Hg 12/19/2024 Height 61 in 12/19/2024 Blood pressure systolic 138 mm Hg 12/19/2024 Weight 221.4 lbs 12/19/2024 BMI 41.83 kg/m2 12/19/2024 Encounters Encounter Location Date Provider Diagnosis [facility] [address] [place] [address] 12/19/2024 Andrey Figueroa Well adult Z00.00 ; Flank pain R10.9 and Hip pain M25.559 Assessments Encounter Date Diagnosis (ICD Code) Assessment Notes Treatment Notes Treatment Clinical Notes Section Notes 12/19/2024 Well adult (ICD-10 - Z00.00) 12/19/2024 Flank pain (ICD-10 - R10.9) 12/19/2024 Hip pain (ICD-10 - M25.559) Plan Of Treatment Pending Test Test Name Order Date HEMOGLOBIN A1C (GLYCO) 12/19/2024 IRON, TOTAL 12/19/2024 LIPID PANEL (CHOL/TRIG/HDL/LDL) 12/20/19 25 VITAMIN D, 25 LEVEL (TOTAL) 12/19/2024 Urinalysis Microscopic 12/19/2024 Insulin Level 12/19/2024 CULTURE URINE 12/19/2024 MAGNESIUM 12/19/2024 THYROID PROFILE WITH TSH 12/19/2023 XR KUB 1 VIEW 12/19/2024 XR LSPINE MIN 4 VIEWS 12/19/2024 THYROID PANEL (T4/TSH/FREE T3) XR HIP RT 2 3V W PELVIS 12/19/2024 CMP (COMP [place]) w/eGFR CKD-EPI 2024 CBC WITH DIFF 12/19/2024 Insurance Providers Payer Name Payer Address Payer Phone Subscriber Number Group Number Insured Name Patient Relationship to Insured Coverage Start Date Coverage End Date [employer] PPO PLUS LOCAL PLAN [address] [place] [phone] [id number] Karen Whitfield Self - patient is the insured Medical (General) History Medical History History ICD Code Carpal tunnel syndrome G56.00 Deep vein thrombophlebitis of lower leg, unspecified laterality I80.209 Irregular intermenstrual bleeding N92.1 Factor V Leiden mutation D68.51 Phlebitis of upper extremity I80.8 Sleep apnea G47.30 Tubular adenoma of colon D12.6 Surgical History Surgery Date(Month/Year) Gastric Sleeve Hysterectomy Gallbladder
--- OUTSIDE RECORDS SUMMARY | 2024-12-19 09:08 | XMS_ITS | Clinical Summary ---
Author Organization [facility] Address [address] [place] [id number] Care Team Providers Care Director Of Audiology Name Role Phone Jhonatan Figueroa MD Primary Care Provider [phone] Yo Andres MD Unavailable Allergies Active Allergy Reactions Criticality Noted Date Comments Mold Itching High 12/18/2018 Medications * This document contains information received from the source organization and may not represent a complete record from that organization. aspirin, enteric coated (ADULT LOW DOSE ASPIRIN) 81 mg EC tablet Take 1 tablet by mouth once daily. 8 Active AFLURIA QUAD 2628-3489, PF, 60 mcg (15 mcg x 4)/0.5 mL syrg ADMINISTERED AT DDM 0 8 Active predniSONE (DELTASONE) 20 mg tablet 8 Active sulfamethoxazol e-trimethoprim (BACTRIM DS,SEPTRA DS) 800-160 mg per tablet 8 Active Active Problems Problem Noted Date Diagnosed Date S/P laparoscopic sleeve gastrectomy 12/18/2018 Overweight (BMI 25.0-29.9) 12/18/2018 MARY on CPAP Overview (07/20/2017): Wears mask every night Resolved Problems Problem Noted Date Diagnosed Date Resolved Date Obesity, Class II, BMI 35-39.9 11/28/2017 12/18/2018 Obesity, Class II, BMI 35-39 .9, with comorbidity 11/28/2017 12/18/2018 Morbid obesity 11/06/2017 12/18/2018 Overview (11/06/2017): Added automatically from request for surgery [id number] Family History Medical History Relation Comments Heart Brother 1 age 42. low platelets Brother 2 platelets Brother 3 Alzheimer's Disease Father CHF Father pulmonary fibrosis Mother 63 Hypertension Sister Relation Status Comments Brother 1 Brother 2 Brother 3 Father Mother Sister Social History Tobacco Use Types Packs/Day Years Used Date Smoking Tobacco: Never Smokeless Tobacco: Never Alcohol Use Standard Drinks/Week Comments Yes 1 (1 standard drink = 0.6 oz pur e alcohol) twice a month PHQ-2 Answer Date Recorded PHQ2 Score 0 11/28/2017 Area Deprivation Index Answer Date Raymond rded National Score (1-100), lower number is lower ri sk Not on file 04/21/2020 State Score (1-10), lower number is lower risk N ot on file 04/21/2020 Data from: https://www.neighborhoodatlas.medicine.[facility]/. Last address used for calculation Not on file 04/21/2020 Comments No Sex and Gender Information Value Date Recorded Sex Assigned at Not on file Legal Sex Female 3:40 PM EST Gender Identity Not on file Sexual Orientation Not on file 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 file Not on file Not on file Last Filed Vital Signs Vital Sign Reading Time Taken Comments Blood Pressure 118/62 12/18/2018 11:23 AM EDT Pulse 55 12/18/2018 11:23 AM EDT Temperature 36.7 C (98.1 F) 11/29/2017 11:42 AM EDT Respiratory Rate 20 11/29/2017 11:42 AM EDT Oxygen Saturation 95% 05/04/2018 9:27 AM EST Inhaled Oxygen Concentration - - Weight 65.8 kg (145 lb) 12/18/2018 11:23 AM EDT Height 156.8 cm (5' 1.75 ) 12/18/2018 11:23 AM E DT Body Mass Index 26.74 12/18/2018 11:23 AM EDT Plan of Treatment Health Maintenance Due Date Last Done Comments Anxiety Screening 1980 Depression Screening 1980 HIV Screening 1980 Hepatitis C Screening 1980 DTaP,Tdap,Td Vaccine (1 - Tdap) 1981 Cervical Cancer Screening 09/16/[address] Colonography 09/16/2007 Cologuard (FIT-DNA) 09/16/2007 Colonoscopy 09/16/2007 Colorectal Cancer Screening 09/16/2007 Fecal Occult Blood 09/16/2007 Sigmoidoscopy 09/16/2007 Pneumococcal Vaccine: 50+ (1 of 1 - PCV) 2012 Shingrix Vaccine (1 of 2) 2012 Diabetes Screening 12/18/2021 12/18/2018, 0 06/04/2018, 11/29/2017, Additional history exists Lipid Screening 12/19/2023 12/18/2018, 05/16, 07/05/2017 Influenza Vaccine (#1) 2025 RSV Vaccine (1 - 1-dose 75+ series) 2037 Procedures Procedure Name Priority Date/Time Associated Diagnosis Comments COMPREHENSIVE METABOLIC PANEL Routine 12/18/2018 12:17 PM EDT S/P laparoscopic sleeve gastrectomy Postoperative malabsorption LIPID PANEL, FASTING Routine 12/18/2018 12:17 PM EDT S/P laparoscopic sleeve gastrectomy Postoperative malabsorption from Last 3 Months or Most Recently Relevant to Health Maintenance Results * LIPID PANEL BASIC (12/18/2018 12:17 PM EDT) Cholesterol, Total 163 <200 mg/dL 12/18/2018 2:43 PM EDT [facility] Comment: <200 mg/dL, Desirable 200-239 mg/dL, Borderline high >239 mg/dL, High Triglyceride 38 <150 mg/dL 12/18/2018 2:43 PM EDT [facility] Comment: <150 mg/dL, Normal 150-199 mg/dL, Borderline high 200-499 mg/dL, High >499 mg/dL, Very high HDL Cholesterol 75 >39 mg/dL 9 2:43 PM EDT [facility] Comment: 40-59 mg/dL, Acceptable >59 mg/dL, High: Negative risk factor for coronary heart disease <40 mg/dL, Low: Positive risk factor for coronary heart disease LDL Cholesterol, Calculated 80 <100 mg/dL 12/18/2018 2:43 PM EDT [facility] Comment: <100 mg/dL, Optimal 100-129 mg/dL, Near optimal/above optimal 130-159 mg/dL, Borderline high 160-189 mg/dL, High >189 mg/dL, Very high Secondary prevention optimal LDL Cholesterol levels are recommended to be < 70 mg/dL Non HDL Cholesterol 88 <130 mg/dL 12/18/2018 2:43 PM EDT [facility] Comment: <130 mg/dL, Optimal 130-159 mg/dL, Near optimal/above optimal 160-189 mg/dL, Borderline high 190-219 mg/dL, High >219 mg/dL, Very high Secondary prevention optimal non HDL Cholesterol levels are recommended to be < 100 mg/dL Fasting Time 12 hrs 12/18/2018 12:20 PM EDT [facility] VLDL Cholesterol 8 <30 mg/dL 12/19/19 19 2:43 PM EDT [facility] TC:HDL Ratio 2.17 <5.10 12/18/2018 2:43 PM EDT [facility] LDL:HDL Ratio 1.07 <2.54 12/18/2018 2:43 PM EDT [facility] Comment: Reference: 1. National Cholesterol Education Program ATP III Guideline At-A-Glance Quick Desk Reference: National Heart, Lung, and Blood Avis. National Institutes of Health. 2001: NIH Publication No. 01-3305. 2. An International Atherosclerosis Society position paper: global recommendations for the management of dyslipidemia: executive summary, Atherosclerosis. 2014: 232(2):410-413. Blood specimen (specimen) BLOOD SPECIMEN / Unknown 12/18/2018 12:17 PM EDT 12/18/2018 12:19 PM EDT us Rowena Anaya DATA PROCESSING CLERK.DENTAL ASSISTANT INSTRUCTOR LABORATORY Final Res ult [facility] [address] [place] [address] [facility] [address] [place] [address] * COMP METABOLIC PANEL (12/18/2018 12:17 PM EDT) Protein, Total 7.3 6.3 - 8.0 g/dL 12/18/2018 2:43 PM [facility] Albumin 4.5 3.9 - 4.9 g/dL 12/18/2018 2:43 PM [facility] Calcium 10.0 8.5 - 10.2 mg/dL 12/18/2018 2:43 PM [facility] Bilirubin, Total 0.7 0.2 - 1.3 mg/dL 12/18/2018 2:43 PM [facility] Alkaline Phosphatase 69 34 - 123 U/L 12/18/2018 2:43 PM [facility] AST 23 13 - 35 U/L 12/18/2018 2:43 PM [facility] [place] Glucose 82 74 - 99 mg/dL 12/18/2018 2:43 PM [facility] Comment: The [place] Diabetes Association (ADA) provides guidance for cutoff values for fasting glucose and random glucose. The ADA defines fasting as no caloric intake for at least 8 hours. Fasting plasma glucose results between 100 to 125 mg/dL indicate increased risk for diabetes (prediabetes). Fasting plasma glucose results greater than or equal to 126 mg/dL meet the criteria for diagnosis of diabetes. In the absence of unequivocal hyperglycemia, results should be confirmed by repeat testing. In a patient with classic symptoms of hyperglycemia or hyperglycemic crisis, random plasma glucose results greater than or equal to 200 mg/dL meet the criteria for diagnosis of diabetes. Reference: Standards of Medical Care in Diabetes 2016, [place] Diabetes Association. Diabetes Care. 2016.39(Suppl 1). BUN 16 7 - 21 mg/dL 12/18/2018 2:43 PM [facility] Creatinine 0.74 0.58 - 0.96 mg/dL 12/18/2018 2:43 PM [facility] Sodium 142 136 - 144 mmol/L 12/18/2018 2:43 PM [facility] Potassium 4.3 3.7 - 5.1 mmol/L 12/18/2018 2:43 PM [facility] Chloride 103 97 - 105 mmol/L 12/18/2018 2:43 PM [facility] CO2 28 22 - 30 mmol/L 12/18/2018 2:43 PM [facility] Anion Gap 11 9 - 18 mmol/L 12/18/2018 2:43 PM [facility] ALT 16 7 - 38 U/L 12/18/2018 2:43 PM EDT [facility] eGFR- >60 12/18/2018 2:43 PM EDT [facility] eGFR-All Other Races >60 . 12/18/2018 2:43 PM EDT [facility] Comment: eGFR (Estimated GFR) Units of measure: mL/min/1.73 meters squared eGFR is derived from the reexpressed MDRD Study equation using the following parameters: serum creatinine, age, gender and race. The creatinine assay has been calibrated to be traceable to IDMS. An eGFR <60 mL/min/1.73m2 for >3 months is consistent with chronic kidney disease. Refer to KDOQI guidelines for clinical interpretation. In patients with unstable renal function, e.g. those with acute kidney injury, the eGFR may not accurately reflect actual GFR. Blood specimen (specimen) BLOOD SPECIMEN / Unknown 12/18/2018 12:17 PM EDT 12/18/2018 12:19 PM EDT us Rowena Anaya DATA PROCESSING CLERK.DENTAL ASSISTANT INSTRUCTOR LABORATORY Final Res ult [facility] [address] [facility] [place] [address] [facility] [address] [place] [address] from Last 3 Months or Most Recently Relevant to Health Maintenance [place] [facility] [place] Care Teams Director Of Audiology Relationship Specialty Start Date End Date Jhonatan Figueroa MD PCP - General Family Medicine 10/02/17 Yo Andres MD [address] [facility] [place] [address] Primary Staff Physician Cardiology 07/31/18
--- OUTSIDE RECORDS SUMMARY | 2024-12-19 09:08 | XMS_ITS | Encounter Summary ---
Author Organization [facility] Address [address] [place] [address] Care Team Providers Care Director Of Accounting Name Role Phone Jhonatan Figueroa MD Primary Care Provider [phone] Encounter Details Date Type Department Care Team (Late st Contact Info) Description 06/12/2023 External Result Encounter [facility] Unsolicited Colton Mckeon, DO [address] [place] [address] Social History Tobacco Use Types Packs/Day Years Used Date Smoking Tobacco: Never Smokeless Tobacco: Never Alcohol Use Standard Drinks/Week Comments Yes 1 (1 standard drink = 0.6 oz pure alcohol) Caffeine intake: 1-2 cups per day coffee AUDIT-C Answer Date Recorded Q1: How often do you have a drink containing alc ohol? Monthly or less 03/20/2023 Q2: How many drinks containi ng alcohol do you have on a typical day when you are drinking? 1 or 2 03/20/2023 Q3: How often do you have si x or more drinks on one occasion? Never 03/20/2023 PHQ-2 Answer Date Recorded Patient Health Questionnaire-2 Score 0 03/20/2023 Comments No Sex and Gender Information Value [...] 4:00 PM EST [facility] [address] [place] [address] Colton Mckeon DO [address] [place] [address] documented as of this encounter Procedures Procedure Name Priority Date/Time Associated Diagnosis Comments BI MAMMOGRAM SCREENING BILATERAL 06/12/2023 3:56 PM EST documented in this encounter Results * Bilateral screening mammogram (06/12/2023 3:56 PM EST) Anatomical Region Laterality Modality Breast Bilateral Mammography 06/12/2023 3:56 PM EST Impressions 06/12/2023 4:00 PM EST No mammographic evidence of malignancy. Routine follow-up recommended in one year. RESULT CODE: 2 Benign Findings(s) DENSITY CODE: 2 (approximately 25-50% glandular) FOLLOW UP: 1YR THE FALSE-NEGATIVE RATE OF MAMMOGRAPHY IS APPROXIMATELY 10%. IMAGING OF A PALPABLE ABNORMALITY MUST BE BASED ON CLINICAL GROUNDS. PATIENT WAS ENTERED INTO A REMINDER SYSTEM WITH A TARGET DUE DATE FOR THE NEXT MAMMOGRAM. Impression dictated by: Shiva Arauz M.D.06/12/2023 3:57 PM Dictation Location: [facility] Transcribed By: [facility] 06/12/23 1557 Dictated By: Shiva Arauz DO 06/12/23 1556 Signed By: <Electronically signed by Shiva Arauz DO in OV> 06/12/23 1557 Narrative 06/12/2023 4:00 PM EST [facility] Main [address] [address] Mammography Report Signed Patient: Karen Whitfield MR#: [id number] 639 : 1960 Acct:[id number] Age/Sex: 62 / F ADM Date: 06/12/23 Loc: DC Room: Type: [facility] CLI Attending Dr: Colton Mckeon DO Copies to: MD Colton Avila DO Ordering Provider: Colton Mckeon DO Date of Service: 06/12/23 MM/MM screening mammo BI w/CAD: SCREENING BILATERAL Screening Full Field digital mammogram with 3-D imaging. Full field digital CC and MLO imaging performed. CAD utilized. COMPARISON: 05/30/2022 HISTORY: Annual screening BREAST COMPOSITION: The breast parenchyma is heterogeneously dense. BENIGN BREAST CALCIFICATIONS: Present VASCULAR CALCIFICATIONS: None DEVELOPING ARCHITECTURAL DISTORTION: None DEVELOPING BREAST NODULE: None DEVELOPING MALIGNANT CALCIFICATIONS: None AXILLARY LYMPH NODES: Normal POSTSURGICAL CHANGES: None MM/MM screening mammo BI w/CAD Procedure Note Radiology, Radiologist, MD - 06/12/2023 [facility] [place] [address] [place] [address] Mammography Report Signed Patient: Karen Whitfield AMR#: [id number] : 1960Acct:[id number] Age/Sex: 62 / FADM Date: 06/12/23 Loc: DC Room:Type: [facility] Attending Dr: Colton Mckeon DO Copies to: MD Colton Avila DO Ordering Provider: Colton Mckeon DO Date of Service: 06/12/23 MM/MM screening mammo BI w/CAD: SCREENING BILATERAL Screening Full Field digital mammogram with 3-D imaging. Full field digital CC and MLO imaging performed. CAD utilized. COMPARISON: 05/30/2022 HISTORY: Annual screening BREAST COMPOSITION: The breast parenchyma is heterogeneously dense. BENIGN BREAST CALCIFICATIONS: Present VASCULAR CALCIFICATIONS: None DEVELOPING ARCHITECTURAL DISTORTION: None DEVELOPING BREAST NODULE: None DEVELOPING MALIGNANT CALCIFICATIONS: None AXILLARY LYMPH NODES: Normal POSTSURGICAL CHANGES: None MM/MM screening mammo BI w/CAD IMPRESSION: No mammographic evidence of malignancy. Routine follow-up recommended inone year. RESULT CODE: 2 Benign Findings(s) DENSITY CODE: 2 (approximately 25-50% glandular) FOLLOW UP: 1YR THE FALSE-NEGATIVE RATE OF MAMMOGRAPHY IS APPROXIMATELY 10%. IMAGING OF A PALPABLE ABNORMALITY MUST BE BASED ON CLINICAL GROUNDS. PATIENT WAS ENTERED INTO A REMINDER SYSTEM WITH A TARGET DUE DATE FOR THENEXT MAMMOGRAM. Impression dictated by: Shiva Arauz M.D.06/12/2023 3:57 PM Dictation Location: S Transcribed By: [facility] 06/12/231556 Dictated By: Shiva Arauz DO 06/12/231555 Signed By: <Electronically signed by Shiva Arauz DO in OV> 06/12/231556 Colton Mckeon DO IMG BI PROCEDURES Final Resu lt documented in this encounter Visit Diagnoses Not on filedocumented in this encounter Care Teams Director Of Accounting Relationship Specialty Start Date End Date Jhonatan Figueroa MD PCP - General Family Medicine 03/20/23 documented as of this encounter
--- NOTE | 2024-12-19 09:27 | XR_ITS ---
The [address] [address] Patient Name: KAMALJIT EUBANKS MRN: [id number] date: 1960 Sex: F Assigned Patient Location: LAB Current Patient Location: LAB Accession/Order Number: [id number] Exam Date: 12/19/2024 10:14 Report Date: 12/19/2024 10:25 At the request of: ARTUR MOSS MD Procedure: XR hip RT 2V w/ pelvis CLINICAL DATA: Chronic right flank, back and hip pain with recent worsening. No injury. LUMBAR SPINE - 5 views COMPARISON: 03/22/2021 AP, lateral lumbar and lumbosacral and both oblique views were obtained. Slight levoscoliotic curvature is noted. There are no acute compression fractures. There is still slight retrolisthesis of L2 on L3. There is disc space narrowing at L1-2 and L2-3. Endplate spurring is present. There is also lower lumbar facet hypertrophy. No pars defects are identified. The SI joints are intact. No paraspinal soft tissue abnormalities are noted. XR/XR hip RT 2V w/ pelvis IMPRESSION: MILD SCOLIOSIS AND SIMILAR DEGENERATIVE CHANGES RIGHT HIP WITH AP PELVIS - 3 views COMPARISON: 03/22/2021 AP view the pelvis and AP and frog-lateral views of the right hip were obtained. No acute fracture or dislocation is identified. The hip joint spaces are maintained. There is minimal spurring at the periphery of the femoral heads and mild to moderate at the superior acetabula. There are enthesophytes at the right iliac crest and both greater trochanters. There is sclerosis at the pubic symphysis. The SI joint is intact. No soft tissue abnormalities are seen. IMPRESSION: SIMILAR DEGENERATIVE CHANGES, DESCRIBED. NO ACUTE BONY FINDINGS. SINGLE VIEW ABDOMEN COMPARISON: None Supine views of the abdomen and pelvis were obtained. There is mild air and stool within the colon. There is minimal small bowel air, without disproportionate distention. No suspect radiopaque renal or ureteral stones are identified. No soft tissue masses are seen. There is slight levoscoliotic curvature and degenerative changes at the spine. There are clips from prior cholecystectomy. IMPRESSION: NO ACUTE PLAIN FILM FINDINGS. Impression dictated by: Karin Francois M.D. 12/19/2024 10:25 AM Dictation Location: [facility] Electronically authenticated by: [id number] Y Date: 12/19/2024 10:25
--- NOTE | 2024-12-19 09:27 | XR_ITS ---
The [address] [address] Patient Name: KAMALJIT EUBANKS MRN: [id number] date: 1960 Sex: F Assigned Patient Location: LAB Current Patient Location: LAB Accession/Order Number: [id number] Exam Date: 12/19/2024 10:14 Report Date: 12/19/2024 10:25 At the request of: ARTUR MOSS MD Procedure: XR hip RT 2V w/ pelvis CLINICAL DATA: Chronic right flank, back and hip pain with recent worsening. No injury. LUMBAR SPINE - 5 views COMPARISON: 03/22/2021 AP, lateral lumbar and lumbosacral and both oblique views were obtained. Slight levoscoliotic curvature is noted. There are no acute compression fractures. There is still slight retrolisthesis of L2 on L3. There is disc space narrowing at L1-2 and L2-3. Endplate spurring is present. There is also lower lumbar facet hypertrophy. No pars defects are identified. The SI joints are intact. No paraspinal soft tissue abnormalities are noted. XR/XR abdomen 1V IMPRESSION: MILD SCOLIOSIS AND SIMILAR DEGENERATIVE CHANGES RIGHT HIP WITH AP PELVIS - 3 views COMPARISON: 03/22/2021 AP view the pelvis and AP and frog-lateral views of the right hip were obtained. No acute fracture or dislocation is identified. The hip joint spaces are maintained. There is minimal spurring at the periphery of the femoral heads and mild to moderate at the superior acetabula. There are enthesophytes at the right iliac crest and both greater trochanters. There is sclerosis at the pubic symphysis. The SI joint is intact. No soft tissue abnormalities are seen. IMPRESSION: SIMILAR DEGENERATIVE CHANGES, DESCRIBED. NO ACUTE BONY FINDINGS. SINGLE VIEW ABDOMEN COMPARISON: None Supine views of the abdomen and pelvis were obtained. There is mild air and stool within the colon. There is minimal small bowel air, without disproportionate distention. No suspect radiopaque renal or ureteral stones are identified. No soft tissue masses are seen. There is slight levoscoliotic curvature and degenerative changes at the spine. There are clips from prior cholecystectomy. IMPRESSION: NO ACUTE PLAIN FILM FINDINGS. Impression dictated by: Karin Francois M.D. 12/19/2024 10:25 AM Dictation Location: [email or web address] Electronically authenticated by: [id number] Y Date: 12/19/2024 10:25
--- NOTE | 2024-12-19 09:28 | XR_ITS ---
The [address] [address] Patient Name: KAMALJIT EUBANKS MRN: [id number] date: 1960 Sex: F Assigned Patient Location: LAB Current Patient Location: LAB Accession/Order Number: [id number] Exam Date: 12/19/2024 10:14 Report Date: 12/19/2024 10:25 At the request of: ARTUR MOSS MD Procedure: XR hip RT 2V w/ pelvis CLINICAL DATA: Chronic right flank, back and hip pain with recent worsening. No injury. LUMBAR SPINE - 5 views COMPARISON: 03/22/2021 AP, lateral lumbar and lumbosacral and both oblique views were obtained. Slight levoscoliotic curvature is noted. There are no acute compression fractures. There is still slight retrolisthesis of L2 on L3. There is disc space narrowing at L1-2 and L2-3. Endplate spurring is present. There is also lower lumbar facet hypertrophy. No pars defects are identified. The SI joints are intact. No paraspinal soft tissue abnormalities are noted. XR/XR lumbar spine min 4V IMPRESSION: MILD SCOLIOSIS AND SIMILAR DEGENERATIVE CHANGES RIGHT HIP WITH AP PELVIS - 3 views COMPARISON: 03/22/2021 AP view the pelvis and AP and frog-lateral views of the right hip were obtained. No acute fracture or dislocation is identified. The hip joint spaces are maintained. There is minimal spurring at the periphery of the femoral heads and mild to moderate at the superior acetabula. There are enthesophytes at the right iliac crest and both greater trochanters. There is sclerosis at the pubic symphysis. The SI joint is intact. No soft tissue abnormalities are seen. IMPRESSION: SIMILAR DEGENERATIVE CHANGES, DESCRIBED. NO ACUTE BONY FINDINGS. SINGLE VIEW ABDOMEN COMPARISON: None Supine views of the abdomen and pelvis were obtained. There is mild air and stool within the colon. There is minimal small bowel air, without disproportionate distention. No suspect radiopaque renal or ureteral stones are identified. No soft tissue masses are seen. There is slight levoscoliotic curvature and degenerative changes at the spine. There are clips from prior cholecystectomy. IMPRESSION: NO ACUTE PLAIN FILM FINDINGS. Impression dictated by: Karin Francois M.D. 12/19/2024 10:25 AM Dictation Location: [email or web address] Electronically authenticated by: [id number] Y Date: 12/19/2024 10:25
[2024-12-19 10:01] LABS: Hematocrit 45.1 % (36.0-48.0); Hemoglobin 14.9 g/dL (12.0-16.0); Immature Granulocytes Abs Auto 0.02 10^3/uL (0.00-0.03); Immature Granulocytes Pct Auto 0.3 % (0.0-0.5); Lymphocytes Absolute Auto 1.8 10^3/uL (1.2-3.8); Mean Corpuscular HGB Conc 33.0 g/dL (29.9-35.2); Mean Corpuscular Hemoglobin 30.3 pg (26.7-34.0); Mean Corpuscular Volume 91.9 fL (81.0-99.0); Platelet Count 192 10^3/uL (150-450); Red Blood Count 4.91 10^6/uL (4.20-5.40); White Blood Count 5.8 10^3/uL (4.0-11.0)
[2024-12-19 10:12] LABS: Iron 91.0 ug/dL (50.0-170.0)
[2024-12-19 10:26] LABS: Alanine Aminotransferase 31 U/L (14-59); Albumin Globulin Ratio 0.8; Albumin Level 3.8 g/dL (3.4-5.0); Alkaline Phosphatase 95 U/L (46-116); Anion Gap 12.0; Aspartate Amino Transferase 21 U/L (15-37); Blood Urea Nitrogen 20.0 mg/dL (7.0-18.0); Calcium 9.4 mg/dL (8.5-10.1); Carbon Dioxide 28.7 mmol/L (21.0-32.0); Chloride 104 mmol/L (98-107); Cholesterol 187 mg/dL (<=200); Estimated GFR (African America >60 (>=60 mL/min/1.73m^2); Estimated GFR (Non-African Ame >60 (>=60 mL/min/1.73m^2); Free T3 2.87 pg/mL (2.18-3.98); Globulin 4.5 g/dL; Glucose 95 mg/dL (74-106); HDL Cholesterol 72 mg/dL (40-60); Magnesium 2.2 mg/dL (1.8-2.4); Potassium 3.7 mmol/L (3.5-5.1); Sodium 141 mmol/L (136-145); Thyroid Stimulating Hormone 0.987 uIU/mL (0.358-3.740); Total Protein 8.3 g/dL (6.4-8.2); Triglycerides 78 mg/dL (<=150); VLDL CHOLESTEROL 15.6 mg/dL
[2024-12-19 10:40] LABS: Glucose Urine UA NEGATIVE (NEGATIVE)
[2024-12-19 13:52] LABS: Cast Seen? NONE SEEN #/LPF (NONE SEEN); Crystals Seen? None Seen #/HPF (None Seen)
== END 2024-12-19 09:06 | disposition home or self-care (01) ==
PROVIDERS: PCP Family Medicine; Visit Provider Family Medicine
DX: Z00.00 Encounter for general adult medical examination without abnormal findings (principal); R10.9 Unspecified abdominal pain; M25.551 Pain in right hip; M41.86 Other forms of scoliosis, lumbar region; M51.369 Other intervertebral disc degeneration, lumbar region without mention of lumbar back pain or lower extremity pain
CPT/HCPCS: 36415; 72110; 73502; 74018; 80053; 80061; 81001; 82306; 83036; 83525; 83540; 83735; 84436; 84443; 84481; 85025; 87086